=== PATIENT | male | born 1965 | race Caucasian/White ===

== ENCOUNTER 2019-12-17 10:41 | Emergency (ER) | payer MEDICAID ==
[~2019-12-17] VITALS: Ht 162.6 cm; Wt 68.0 kg
[2019-12-17 10:48] VITALS: Ht 162.6 cm; Wt 68.0 kg
[2019-12-17 17:21] VITALS: BP 150/77
== END 2019-12-17 17:20 | disposition short-term general hospital (02) ==
LOC: ED 10:41
DX: H33.22 Serous retinal detachment, left eye (principal); E11.9 Type 2 diabetes mellitus without complications
CPT/HCPCS: 82962